=== PATIENT | male | born 1935 | race Caucasian/White ===

== ENCOUNTER → 2020-05-05 | Outpatient (CLI) | payer MEDICARE, BC | LOC: COL.PUL 11:17 | DX: R06.02 Shortness of breath (principal); Z79.899 Other long term (current) drug therapy; Z87.891 Personal history of nicotine dependence ==

== ENCOUNTER 2020-06-14 06:36 | Day surgery (SDC) | payer MEDICARE, BC ==
[2020-06-14] VITALS (16 sets, daily range): BP systolic 96–139; BP diastolic 58–84; PULSE 45–69; TEMP 98.3
[~2020-06-14] VITALS: Ht 183 cm; Wt 84.4 kg
[2020-06-14 07:51] LABS: HEMATOCRIT 41.6 % (42.0-52.0); HEMOGLOBIN 14.3 g/dl (13.5-18.0); MEAN CELL VOLUME 93 fl (80.0-100.0); MEAN CORPUSCULAR HEMOGLOBIN 32 pg (27.0-31.0); MEAN CORPUSCULAR HGB CONC 34 g/dl (33.0-37.0); MEAN PLATELET VOLUME 9.4 fl (7.4-10.4); PLATELET COUNT 183 K/mm3 (130-400); RED BLOOD COUNT 4.49 M/mm3 (4.20-5.60); REDCELL DISTRIBUTION WIDTH-CV 12.2 % (11.5-14.5)
[2020-06-14 07:59] LABS: INR 1.1 (0.8-3.0); PROTHROMBIN TIME 11.9 SECONDS (9.7-12.8)
[2020-06-14 08:09] LABS: CREATININE, serum 1.2 (0.66-1.25); POTASSIUM 4.5 mmol/L (3.4-5.0)
[2020-06-14] MEDS ORDERED: PULMICORT0.25 MG/2 IH (08:10)
[2020-06-14] MEDS ORDERED: PACERONE200 MG PO (08:10)
[2020-06-14] MEDS ORDERED: ASPIRIN 81M81 MG/TA2 PO (08:10)
[2020-06-14] MEDS ORDERED: THE MEDICINE S200 M2 PO (08:12)
[2020-06-14] MEDS ORDERED: ZESTRIL 5MG5 MG PO (08:12)
[2020-06-14] MEDS ORDERED: TOPROL XL 25MG25 MG PO (08:13)
[2020-06-14] MEDS ORDERED: DUO-KAPS1 CAP PO (08:13)
[2020-06-14] MEDS ORDERED: NITROSTAT0.4 MG/TAB SL (08:14)
[2020-06-14] MEDS ORDERED: ZOCOR 20MG20 MG PO (08:14)
--- NOTE | 2020-06-14 09:02 | NUR ---
SEE MERGE DOCUMENTATION FOR MEDICATION ADMINISRATION TIMES AND INTRA/POST PROCEDURE SEDATION ASSESSMENTS. RIGHT HAND BARBEAU TEST POSITIVE.
--- NOTE | 2020-06-14 14:39 | NUR ---
Discharge instructions given to pt.pt verbalizes understanding.INT removed,catheter tip intact.pt escorted out via wheelchair by this nurse.
== END 2020-06-14 15:49 | disposition home or self-care (01) ==
LOC: COL.CAR 06:36
PROVIDERS: Internal Medicine Cardiovascular Disease
DX: I25.10 Atherosclerotic heart disease of native coronary artery without angina pectoris (principal); R07.9 Chest pain, unspecified; R06.00 Dyspnea, unspecified; I05.9 Rheumatic mitral valve disease, unspecified; I48.0 Paroxysmal atrial fibrillation; I10 Essential (primary) hypertension; Z95.5 Presence of coronary angioplasty implant and graft; F17.210 Nicotine dependence, cigarettes, uncomplicated; Z79.899 Other long term (current) drug therapy; Z79.82 Long term (current) use of aspirin; Z79.01 Long term (current) use of anticoagulants
CPT/HCPCS: J1644; J2250; J3010; Q9967